=== PATIENT | female | born 1970 | race Caucasian/White ===

== ENCOUNTER 2018-01-14 03:52 | Emergency (ER) | payer BC ==
[2018-01-14] MEDS ORDERED: Hydromorphone 1 mg/ml Ampule IV ONE (04:07)
[2018-01-14] MEDS ORDERED: Phenergan 25 MG INJ IV ONE (04:07)
[2018-01-14] MEDS ORDERED: Phenergan 25 MG INJ ONE (04:12)
[2018-01-14] MEDS ORDERED: DILAUDID 2 MG INJECTION ONE (04:13)
[2018-01-14] MEDS ORDERED: Lactated Ringers 1,000 ML IV ONE (04:16)
--- NOTE | 2018-01-14 04:16 | ERPHSYRPT ---
- History of Present Illness Time Seen by Provider: 01/14/18 04:03 Source: patient Exam Limitations: no limitations Patient Subjective Stated Complaint: flank pain tonight. pain with urinating. has hx of kidnet stones last one 2010 Triage Nursing Assessment: aler is slight distress. pain in right flank. staets pain with urinating. has hx of stones. nausea without vomiting Physician History: FOR THE PAST 90 MINUTES PT HAS HAD SHARP STABBING RIGHT FLANK PAIN WITH NAUSEA. YESTERDAY PT STARTED WITH DYSURIA. LAST BM WAS YESTERDAY & WNL. PT DENIES FEVER , VOMITING, CHEST PAIN, SHORTNESS OF AIR. Allergies/Adverse Reactions: No Known Drug Allergies Allergy (Unverified 06/13/15 01:12) Home Medications: No Home Meds [No Home Meds] 07/19/12 [History] Hx Tetanus, Diphtheria Vaccination/Date Given: No Hx Influenza Vaccination/Date Given: No Hx Pneumococcal Vaccination/Date Given: No Immunizations Up to Date: (unknown) - Review of Systems Constitutional: No Fever Respiratory: No Dyspnea Cardiac: No Chest Pain Abdominal/Gastrointestinal: Nausea, Other (RIGHT FLANK PAIN), No Vomiting Genitourinary Symptoms: Dysuria All Other Systems: Reviewed and Negative - Past Medical History Pertinent Past Medical History: Yes Other Medical History: Kidney Stone - Past Surgical History Past Surgical History: No Gastrointestinal: Appendectomy, Cholecystectomy Genitourinary: Other Female Surgical History: Other Other Surgical History: Ovarian cyst removal, wrist cyst removed, kidney stone removed. - Social History Smoking Status: Light tobacco smoker Exposure to second hand smoke: No Drug Use: none Patient Lives Alone: No Significant Family History: no pertinent family hx - Female History Hx Now: No - Nursing Vital Signs Nursing Vital Signs: Initial Vital Signs Temperature 97.4 F 01/14/18 03:57 Pulse Rate 52 L 01/14/18 03:57 Respiratory Rate 20 01/14/18 03:57 Blood Pressure 137/80 01/14/18 03:57 O2 Sat by Pulse Oximetry 100 01/14/18 03:57 Pain Scale Pain Intensity 8 - Physical Exam General Appearance: alert Eye Exam: PERRL/EOMI Ears, Nose, Throat Exam: TMs normal, pharynx normal, moist mucous membranes Neck Exam: normal inspection Respiratory Exam: lungs clear Cardiovascular Exam: normal heart sounds Gastrointestinal/Abdomen Exam: soft, normal bowel sounds, No tenderness Back Exam: normal range of motion Extremity Exam: No pedal edema Neurologic Exam: alert, cooperative Skin Exam: warm, dry SpO2 Interpretation: normal SpO2: 100 Oxygen Delivery: Room Air - Course Nursing assessment & vital signs reviewed: Yes Ordered Tests: Active Orders 24 hr Category Date Time Status Clean Catch Urine Specimen STAT Care 01/14/18 04:07 Active IV Insertion STAT Care 01/14/18 04:07 Active ABDOMEN AND PELVIS W/0 CONTRAS [CT] Stat Exams 01/14/18 04:07 Ordered AMYLASE Stat Lab 01/14/18 04:26 Completed CBC W DIFF Stat Lab 01/14/18 04:26 Completed CMP Stat Lab 01/14/18 04:26 Completed CULTURE,URINE Stat Lab 01/14/18 04:26 Received HCG QUALITATIVE,SERUM Stat Lab 01/14/18 04:26 Completed LIPASE Stat Lab 01/14/18 04:26 Completed UA W/ MICROSCOPIC Stat Lab 01/14/18 04:26 Completed Medication Summary Generic Name Dose Route Start Last Admin Trade Name Freq PRN Reason Stop Dose Admin Lactated Ringer's 1,000 mls @ 100 mls/hr 01/14/18 04:30 01/14/18 04:19 Lactated Ringers IV 02/13/18 04:29 100 mls/hr .Q10H AVIS Administration Ceftriaxone Sodium/Dextrose 1 g in 50 mls @ 100 mls/hr 01/14/18 06:09 Rocephin 1 Gm-D5w 50 Ml Bag IV 01/14/18 06:38 STAT STA Potassium Bicarbonate 50 meq 01/14/18 06:10 K-Lyte 25 Meq PO 01/14/18 06:11 STAT ONE Discontinued Medications Generic Name Dose Route Start Last Admin Trade Name Freq PRN Reason Stop Dose Admin Hydromorphone HCl 1 mg 01/14/18 04:07 01/14/18 04:19 Hydromorphone 1 Mg/Ml Ampule IV 01/14/18 04:08 1 mg STAT ONE Administration Hydromorphone HCl Confirm 01/14/18 04:13 Dilaudid 2 Mg Injection Administered 01/14/18 04:14 Dose 2 mg .ROUTE .STK-MED ONE Promethazine HCl 12.5 mg 01/14/18 04:07 01/14/18 04:18 Phenergan 25 Mg Inj IV 01/14/18 04:08 12.5 mg STAT ONE Administration Promethazine HCl Confirm 01/14/18 04:12 Phenergan 25 Mg Inj Administered 01/14/18 04:13 Dose 25 mg .ROUTE .K-MED ONE Lab/Rad Data: Laboratory Result Diagrams 01/14/18 04:26 01/14/18 04:26 Laboratory Results 01/14/18 01/14/18 01/14/18 Range/Units 04:26 04:26 04:26 WBC 3.6 L (4.0-10.5) K/mm3 RBC 3.75 L (4.1-5.4) M/mm3 Hgb 11.1 L (12.0-16.0) gm/dl Hct 33.6 L (35-47) % MCV 89.6 (78-100) fl MCH 29.6 (26-32) pg MCHC 33.0 (32-36) g/dl RDW 12.1 (11.5-14.0) % Plt Count 210 (150-450) K/mm3 MPV 10.3 H (6-9.5) fl Gran % 64.0 (36.0-66.0) % Lymphocytes % 25.0 (24.0-44.0) % Monocytes % 10.7 (0.0-12.0) % Eosinophils % 0.0 (0.00-5.0) % Basophils % 0.3 (0.0-0.4) % Basophils # 0.01 (0-0.4) Sodium 141 (137-145) mmol/L Potassium 3.1 L (3.5-5.1) mmol/L Chloride 105 (98-107) mEq/L Carbon Dioxide 24 (22-30) mmol/L Anion Gap 15.0 (5-15) MEQ/L BUN 18 H (7-17) mg/dl Creatinine 1.10 H (0.52-1.04) mg/dl Estimated GFR 57 ML/MIN Glucose 87 (74-106) mg/dL Calcium 9.4 (8.4-10.2) mg/dL Total Bilirubin 0.20 (0.2-1.3) mg/d? AST 29 (14-36) U/L ALT 20 (0-35) U/L Alkaline Phosphatase 81 (38-126) U/L Serum Total Protein 8.6 H (6.3-8.2) mg/dl Albumin 4.2 (3.5-5.0) g/dl Amylase 59 (30-110) U/L Lipase 75 (23-300) U/L Serum , Qual NEGATIVE (Negative) Ur Collection Type Urine Color (YELLOW) Urine Appearance (CLEAR) Urine pH (5-6) Ur Specific [place] (1.005-1.025) Urine Protein (Negative) Urine Ketones (NEGATIVE) Urine Blood (0-5) Mitch/ul Urine Nitrite (NEGATIVE) Urine Bilirubin (NEGATIVE) Urine Urobilinogen (0-1) mg/dL Ur Leukocyte Esterase (NEGATIVE) Urine Microscopic RBC (0-2) /HPF Urine Microscopic WBC (0-5) /HPF Ur Epithelial Cells (FEW) /HPF Urine Bacteria (NEGATIVE) /HPF Urine Culture Reflexed (NO) Urine Glucose (NEGATIVE) mg/dL Specimen Received 01/14/18 Range/Units 04:26 WBC (4.0-10.5) K/mm3 RBC (4.1-5.4) M/mm3 Hgb (12.0-16.0) gm/dl Hct (35-47) % MCV (78-100) fl MCH (26-32) pg MCHC (32-36) g/dl RDW (11.5-14.0) % Plt Count (150-450) K/mm3 MPV (6-9.5) fl Gran % (36.0-66.0) % Lymphocytes % (24.0-44.0) % Monocytes % (0.0-12.0) % Eosinophils % (0.00-5.0) % Basophils % (0.0-0.4) % Basophils # (0-0.4) Sodium (137-145) mmol/L Potassium (3.5-5.1) mmol/L Chloride (98-107) mEq/L Carbon Dioxide (22-30) mmol/L Anion Gap (5-15) MEQ/L BUN (7-17) mg/dl Creatinine (0.52-1.04) mg/dl Estimated GFR ML/MIN Glucose (74-106) mg/dL Calcium (8.4-10.2) mg/dL Total Bilirubin (0.2-1.3) mg/d? AST (14-36) U/L ALT (0-35) U/L Alkaline Phosphatase (38-126) U/L Serum Total Protein (6.3-8.2) mg/dl Albumin (3.5-5.0) g/dl Amylase (30-110) U/L Lipase (23-300) U/L Serum , Qual (Negative) Ur Collection Type VOID Urine Color YELLOW (YELLOW) Urine Appearance SLIGHTLY CLOUDY (CLEAR) Urine pH 7.0 (5-6) Ur Specific [place] 1.015 (1.005-1.025) Urine Protein 30 (Negative) Urine Ketones NEGATIVE (NEGATIVE) Urine Blood 250 (0-5) Mitch/ul Urine Nitrite POSITIVE (NEGATIVE) Urine Bilirubin NEGATIVE (NEGATIVE) Urine Urobilinogen NORMAL (0-1) mg/dL Ur Leukocyte Esterase 1+ (NEGATIVE) Urine Microscopic RBC 25-50 (0-2) /HPF Urine Microscopic WBC 15-25 (0-5) /HPF Ur Epithelial Cells MODERATE (FEW) /HPF Urine Bacteria MODERATE (NEGATIVE) /HPF Urine Culture Reflexed YES (NO) Urine Glucose NEGATIVE (NEGATIVE) mg/dL Specimen Received 01/14/18 0400 - Departure Time of Disposition: 06:16 Departure Disposition: Home Clinical Impression: UTI, HYPOKALEMIA Condition: Stable Critical Care Time: No Referrals: ASTRID STEWART [Primary Care Provider] - Instructions: Urinary Tract Infection, Adult (DC) Additional Instructions: FOLLOW UP WITH PRIVATE DOCTOR TOMORROW. Prescriptions: Phenazopyridine HCl 200 mg [Pyridium 200 mg] 200 mg PO TID #7 tablet Smz/Tmp Ds Tablet [Bactrim Ds Tablet] 1 udtab PO BID #20 tablet
[2018-01-14] MEDS ORDERED: Lactated Ringers 1,000 ML IV SCH (04:30)
[2018-01-14 04:37] LABS: BASOPHIL % 0.3 % (0.0-0.4); Basophil (Absolute #) 0.01 (0-0.4); Eosinophil (Absolute #) 0 (0-0.5); Granulocyte Absolute (ANC) 2.33 (1.4-6.9); Hematocrit 33.6 % (35-47); Hemoglobin 11.1 gm/dl (12.0-16.0); Lymphocyte (Absolute #) 0.91 (1.0-4.6); Mean Cell Volume 89.6 fl (78-100); Mean Corpuscular Hemoglobin 29.6 pg (26-32); Mean Platelet Volume 10.3 fl (6-9.5); Monocyte (Absolute #) 0.39 (0.0-1.3); Monocytes % 10.7 % (0.0-12.0); Platelet Count 210 K/mm3 (150-450); Red Blood Count 3.75 M/mm3 (4.1-5.4); Red Cell Distribution Width 12.1 % (11.5-14.0); White Blood Count 3.6 K/mm3 (4.0-10.5)
[2018-01-14 04:49] LABS: Appearance SLIGHTLY CLOUDY (CLEAR); Bacteria MODERATE /HPF (NEGATIVE); Bilirubin NEGATIVE (NEGATIVE); Blood 250 Ery/ul (0-5); Epithelial Cells MODERATE /HPF (FEW); Glucose NEGATIVE (NEGATIVE); Ketones NEGATIVE (NEGATIVE); Leukocyte Esterase 1+ (NEGATIVE); Nitrite POSITIVE (NEGATIVE); Protein,Urine Dip 30 (Negative); Specific Gravity 1.015 (1.005-1.025); Urobilinogen NORMAL mg/dL (0-1); WBC 15-25 /HPF (0-5)
[2018-01-14 05:23] LABS: ALBUMIN 4.2 g/dl (3.5-5.0); BILIRUBIN,TOTAL 0.2 mg/d? (0.2-1.3); Calcium 9.4 mg/dL (8.4-10.2); Creatinine 1 1.1 mg/dl (0.52-1.04); Potassium 3.1 mmol/L (3.5-5.1); Total Protein 8.6 mg/dl (6.3-8.2)
[2018-01-14] MEDS ORDERED: ROCEPHIN 1 Gm-D5w 50 ml Bag** 1 G/50 ML IVPB IV STA (06:09)
[2018-01-14] MEDS ORDERED: K-LYTE 25 MEQ PO ONE (06:10)
[2018-01-14] MEDS ORDERED: K-LYTE 25 MEQ ONE (06:26)
[2018-01-14] MEDS ORDERED: ROCEPHIN 1 Gm-D5w 50 ml Bag** 1 G/50 ML IVPB IV ONE (06:26)
[2018-01-14 06:58] VITALS: BP 100/68; PULSE 48; O2SAT 97
--- NOTE | 2018-01-14 09:16 | XRAY ---
Indication: Right flank pain. History kidney stones. Multiple contiguous axial images obtained through the abdomen and pelvis without contrast using renal stone protocol. Comparison: July 19, 2012. Lung bases essentially clear. Heart is not enlarged. Stable small hiatal hernia. Right kidney now demonstrates several micro-calculi, largest 3-4 mm lower pole. Left kidney demonstrates new punctate calculus. Right kidney also mildly hydronephrotic with mild right ureteral prominence along its course. No distal ureteral or bladder calculus. Findings likely related to recent passage of calculus. Noncontrasted stomach and bowel loops again appears nonobstructed. Moderate diffuse scattered colonic fecal debris throughout. Previous hysterectomy, cholecystectomy, and appendectomy. No free fluid/air. Remaining liver, pancreas, spleen, adrenal glands, kidneys, ureters, bladder, and aorta appear unremarkable for noncontrast exam. Osseous structures intact. Impression: 1. New bilateral renal micro-calculi. Right renal collecting system is slightly prominent without distal ureteral/bladder calculus presumed from recent passage of calculus. 2. Fecal stasis without obstruction. 3. Stable small hiatal hernia. Comment: Preliminary interpretation was made by C. Right-sided mild hydronephrosis/hydroureter not reported and not felt to be critical. CTDI 18.72
== END 2018-01-14 06:59 | disposition home or self-care (01) ==
LOC: ED 03:52
DX: N39.0 Urinary tract infection, site not specified (principal); E87.6 Hypokalemia; Z87.442 Personal history of urinary calculi
CPT/HCPCS: 36000; 36415; 74176; 80053; 81000; 82150; 83690; 84703; 85025; 87077; 87086; 87186; 96360; 96361; 96365; 96374; 96375; 99284; J0696; J1170; J2550; A9270-GY

== ENCOUNTER 2018-12-28 14:04 | Emergency (ER) | payer BC ==
[2018-12-28] MEDS ORDERED: Sodium Chloride 0.9% 1000 ML 1,000 ML IV SCH (14:15)
[2018-12-28] MEDS ORDERED: DUONEB 0.5-3 MG/3 ml Neb IH ONE ×2 (14:15→14:23)
[2018-12-28] MEDS ORDERED: ROCEPHIN 1 Gm-D5w 50 ml Bag** 1 G/50 ML IVPB IV STA (14:15)
[2018-12-28] MEDS ORDERED: solu-MEDROL 125 MG IV ONE (14:15)
[2018-12-28] MEDS ORDERED: Pepcid 20 MG VIAL IV ONE ×2 (14:15→14:51)
--- NOTE | 2018-12-28 14:23 | ERPHSYRPT ---
- History of Present Illness Time Seen by Provider: 12/28/18 14:08 Source: patient, family Exam Limitations: no limitations Physician History: patient with 4 day hx of cough productive of green phlegm; fever and chills; no travel; no exposures; no sore throat; general aches and pains ; no N&V; some CP today with cough and cant; take a deep breat - taight- given steroids yesterday - no help; no hx of copd or asthma Timing/Duration: today (worse), yesterday (CP and steroids), day(s) (4 onset), gradual onset, worse Activities at Onset: rest Severity of Dyspnea-Max: moderate Severity of Dyspnea-Current: moderate Possible Cause: no prior episodes Modifying Factors: Improves With: coughing Associated Symptoms: constant, cough, chest pain/discomfort, fever, wheezing, chills, productive cough International travel in last 2 weeks: No Allergies/Adverse Reactions: No Known Drug Allergies Allergy (Verified 12/28/18 14:18) Hx Tetanus, Diphtheria Vaccination/Date Given: No Hx Influenza Vaccination/Date Given: No Hx Pneumococcal Vaccination/Date Given: No - Review of Systems Constitutional: Fever, Chills Eyes: No Symptoms Ears, Nose, & Throat: No Symptoms Respiratory: Cough, Dyspnea, Wheezing Cardiac: Chest Pain, No Palpitations, No Syncope Abdominal/Gastrointestinal: No Abdominal Pain, No Nausea, No Vomiting, No Diarrhea Genitourinary Symptoms: No Symptoms Musculoskeletal: No Symptoms Skin: No Symptoms Neurological: No Symptoms Psychological: No Symptoms Endocrine: No Symptoms Hematologic/Lymphatic: No Symptoms Immunological/Allergic: No Symptoms - Past Medical History Pertinent Past Medical History: Yes Other Medical History: Sorjrns syndrome'. Kidney Stone - Past Surgical History Past Surgical History: No Gastrointestinal: Appendectomy, Cholecystectomy Genitourinary: Other Female Surgical History: Other Other Surgical History: Ovarian cyst removal, wrist cyst removed, kidney stone removed. - Social History Smoking Status: Light tobacco smoker Exposure to second hand smoke: No Drug Use: none Patient Lives Alone: No Significant Family History: no pertinent family hx - Female History Hx Now: No - Nursing Vital Signs Nursing Vital Signs: Initial Vital Signs Temperature 100.1 F 12/28/18 14:12 Pulse Rate 91 H 12/28/18 14:12 Respiratory Rate 22 12/28/18 14:12 Blood Pressure 124/90 12/28/18 14:12 O2 Sat by Pulse Oximetry 98 12/28/18 14:12 Pain Scale Pain Intensity 0 - Physical Exam General Appearance: moderate distress (coughing), alert, anxiety, thin Eye Exam: PERRL/EOMI, eyes nml inspection Ears, Nose, Throat Exam: hearing grossly normal, normal ENT inspection, normal pharynx, No pharyngeal erythema, No tonsillar exudate Neck Exam: normal inspection, non-tender, supple, full range of motion, No meningismus, No carotid bruit, No JVD, No lymphadenopathy (R), No lymphadenopathy (L) Respiratory Exam: chest tenderness, respiratory distress (mild tahypnea), airway intact, diminished breath sounds (left base), crackles/rales (scattered) , rhonchi (few scattered), wheezing (post right upper exp), No normal breath sounds, No lungs clear, No pleural rub Cardiovascular/Chest Exam: normal heart sounds, regular rate/rhythm, normal peripheral pulses, No murmur, No edema, No JVD Abdominal/Gastrointestinal Exam: soft, normal bowel sounds, No tenderness, No guarding, No rebound, No organomegaly Rectal Exam: deferred Extremity Exam: non-tender, normal range of motion, normal inspection, No no calf tenderness, No no pedal edema, No jorge luis's sign Peripheral Pulses Exam: carotid (R): 4+, carotid (L): 4+, femoral (R): 4+, femoral (L): 4+, dorsalis-pedis (R): 3+, dorsalis-pedis (L): 3+ Neurologic Exam: alert, oriented x 3, cooperative, family welfare social work professor II-XII nml as tested, nml cerebellar function, nml station & gait, No normal mood/affect (anxious) Skin Exam: normal color, warm, dry, No rash, No petechiae, No cyanosis SpO2 Interpretation: normal SpO2: 98 O2 Delivery: Room Air - Course Nursing assessment & vital signs reviewed: Yes EKG Interpreted by Me: RATE (85), Sinus Rhythm, NORMAL AXIS, NORMAL INTERVALS, NORMAL QRS, NORMAL ST-T Rhythm Strip: Rate (86), Normal Sinus Rhythm - Radiology Exams Chest X-ray Interpretation: Interpreted by me, No Pneumonia, No Pneumothorax, Nml Heart Size, No Infiltrates, Other (changes of COPD with linear bi basilar atelectasis/ starnding) Ordered Tests: Active Orders 24 hr Category Date Time Status Gin Feeder STAT Care 12/28/18 14:16 Active EKG-ER Only STAT Care 12/28/18 14:15 Active IV Insertion STAT Care 12/28/18 14:15 Active Pulse Oximetry (ED) STAT Care 12/28/18 14:15 Active CHEST 1 VIEW (PORTABLE) Stat Exams 12/28/18 14:16 Taken BLOOD CULTURE Stat Lab 12/28/18 14:50 Received CBC W DIFF Stat Lab 12/28/18 14:45 Completed CMP Stat Lab 12/28/18 14:45 Completed Lactic Acid Stat Lab 12/28/18 14:48 Completed TROPONIN Q3H Lab 12/28/18 14:45 Completed TROPONIN Q3H Lab 12/28/18 17:15 Ordered TROPONIN Q3H Lab 12/28/18 20:15 Ordered TROPONIN Q3H Lab 12/28/18 23:15 Ordered TROPONIN Q3H Lab 12/29/18 02:15 Ordered Peak Expiratory Flow Rate ONCE RT 12/28/18 14:15 Active Respiratory Nebulizer STAT RT 12/28/18 14:17 Completed Respiratory Therapy Assessment DAILY RT 12/28/18 14:40 Active Medication Summary Generic Name Dose Route Start Last Admin Trade Name Freq PRN Reason Stop Dose Admin Sodium Chloride 1,000 mls @ 100 mls/hr 12/28/18 14:15 12/28/18 14:52 Sodium Chloride 0.9% 1000 Ml IV 01/27/19 14:14 100 mls/hr .Q10H AVIS Administration Discontinued Medications Generic Name Dose Route Start Last Admin Trade Name Freq PRN Reason Stop Dose Admin Acetaminophen 1,000 mg 12/28/18 14:29 12/28/18 14:52 Tylenol Extra Strength 500 Mg PO 12/28/18 14:30 1,000 mg STAT STA Administration Acetaminophen Confirm 12/28/18 14:45 Tylenol Extra Strength 500 Mg Administered 12/28/18 14:46 Dose 1,000 mg .ROUTE .STK-MED ONE Albuterol/Ipratropium 3 ml 12/28/18 14:15 12/28/18 14:32 Duoneb 0.5-3 Mg/3 Ml Neb IH 12/28/18 14:16 3 ml STAT ONE Administration Albuterol/Ipratropium Confirm 12/28/18 14:23 Duoneb 0.5-3 Mg/3 Ml Neb Administered 12/28/18 14:24 Dose 3 ml IH .STK-MED ONE Famotidine 20 mg 12/28/18 14:15 12/28/18 14:51 Pepcid 20 Mg Vial IV 12/28/18 14:16 20 mg STAT ONE Administration Famotidine Confirm 12/28/18 14:51 Pepcid 20 Mg Vial Administered 12/28/18 14:52 Dose 20 mg IV .STK-MED ONE Ceftriaxone Sodium/Dextrose 1 g in 50 mls @ 100 mls/hr 12/28/18 14:15 14:52 Rocephin 1 Gm-D5w 50 Ml Bag IV 12/28/18 14:44 100 ml/hr STAT STA 100 mls/hr Administration Ceftriaxone Sodium/Dextrose Confirm 12/28/18 14:51 Rocephin 1 Gm-D5w 50 Ml Bag Administered 12/28/18 14:52 Dose 1 g in 50 mls @ ud IV .STK-MED ONE Methylprednisolone Sodium Succinate 125 mg 12/28/18 14:15 12/28/18 14:51 Solu-Medrol 125 Mg IV 12/28/18 14:16 125 mg STAT ONE Administration Methylprednisolone Sodium Succinate Confirm 12/28/18 14:45 Solu-Medrol 125 Mg Administered 12/28/18 14:46 Dose 125 mg .ROUTE .STK-MED ONE Potassium Bicarbonate 50 meq 12/28/18 15:26 12/28/18 15:28 K-Lyte 25 Meq PO 12/28/18 15:27 50 meq STAT ONE Administration Potassium Bicarbonate Confirm 12/28/18 15:25 K-Lyte 25 Meq Administered 12/28/18 15:26 Dose 50 meq .ROUTE .STK-MED ONE Potassium Chloride 40 meq 12/29/18 10:00 Potassium Chl 40 Meq/30 Ml Oral Solution PO 01/28/19 09:59 DAILY AVIS Lab/Rad Data: Laboratory Result Diagrams 12/28/18 14:45 12/28/18 14:45 Laboratory Results 12/28/18 12/28/18 12/28/18 Range/Units 14:48 14:45 14:45 WBC (4.0-10.5) K/mm3 RBC (4.1-5.4) M/mm3 Hgb (12.0-16.0) gm/dl Hct (35-47) % MCV (78-100) fl MCH (26-32) pg MCHC (32-36) g/dl RDW (11.5-14.0) % Plt Count (150-450) K/mm3 MPV (6-9.5) fl Gran % (36.0-66.0) % Eos # (Auto) (0-0.5) Absolute Lymphs (auto) (1.0-4.6) Absolute Monos (auto) (0.0-1.3) Lymphocytes % (24.0-44.0) % Monocytes % (0.0-12.0) % Eosinophils % (0.00-5.0) % Basophils % (0.0-0.4) % Absolute Granulocytes (1.4-6.9) Basophils # (0-0.4) Sodium 139 (137-145) mmol/L Potassium 2.8 L* (3.5-5.1) mmol/L Chloride 109 H (98-107) mmol/L Carbon Dioxide 18 L (22-30) mmol/L Anion Gap 15.1 H (5-15) MEQ/L BUN 13 (7-17) mg/dL Creatinine 1.19 H (0.52-1.04) mg/dL Estimated GFR 51.9 ML/MIN Glucose 101 (74-106) mg/dL Lactic Acid 1.2 (0.4-2.0) Calcium 10.4 H (8.4-10.2) mg/dL Total Bilirubin 0.60 (0.2-1.3) mg/dL AST 24 (14-36) U/L ALT 17 (0-35) U/L Alkaline Phosphatase 103 (38-126) U/L Troponin I (0.000-0.034) ng/mL Serum Total Protein 9.5 H (6.3-8.2) g/dL Albumin 4.8 (3.5-5.0) g/dL Influenza Type A Ag NEGATIVE (NEGATIVE) Influenza Type B Ag NEGATIVE (NEGATIVE) RSV (PCR) POSITIVE (Negative) Slides for Path Review 12/28/18 12/28/18 Range/Units 14:45 14:45 WBC 8.3 (4.0-10.5) K/mm3 RBC 3.70 L (4.1-5.4) M/mm3 Hgb 11.4 L (12.0-16.0) gm/dl Hct 34.0 L (35-47) % MCV 91.9 (78-100) fl MCH 30.8 (26-32) pg MCHC 33.5 (32-36) g/dl RDW 12.5 (11.5-14.0) % Plt Count 228 (150-450) K/mm3 MPV 10.3 H (6-9.5) fl Gran % 86.8 H (36.0-66.0) % Eos # (Auto) 0 (0-0.5) Absolute Lymphs (auto) 0.51 L (1.0-4.6) Absolute Monos (auto) 0.58 (0.0-1.3) Lymphocytes % 6.2 L (24.0-44.0) % Monocytes % 7.0 (0.0-12.0) % Eosinophils % 0.0 (0.00-5.0) % Basophils % 0.0 (0.0-0.4) % Absolute Granulocytes 7.16 H (1.4-6.9) Basophils # 0 (0-0.4) Sodium (137-145) mmol/L Potassium (3.5-5.1) mmol/L Chloride (98-107) mmol/L Carbon Dioxide (22-30) mmol/L Anion Gap (5-15) MEQ/L BUN (7-17) mg/dL Creatinine (0.52-1.04) mg/dL Estimated GFR ML/MIN Glucose (74-106) mg/dL Lactic Acid (0.4-2.0) Calcium (8.4-10.2) mg/dL Total Bilirubin (0.2-1.3) mg/dL AST (14-36) U/L ALT (0-35) U/L Alkaline Phosphatase (38-126) U/L Troponin I < 0.012 (0.000-0.034) ng/mL Serum Total Protein (6.3-8.2) g/dL Albumin (3.5-5.0) g/dL Influenza Type A Ag (NEGATIVE) Influenza Type B Ag (NEGATIVE) RSV (PCR) (Negative) Slides for Path Review YES reviewed - Progress Progress: re-examined (after meds and resp treatment) Air Movement: fair Progress Note: 12/28/18 14:27 will give IV fluids aTBs and resp treatment after lab and cultures and CXR; will monitor and recheck- sats ok; low grade fever; will give tylenol 12/28/18 14:56 recheck post Resp treatment - patient feeling better; vs improved- resp distress improved; wheezing resolved and moving air better; CXR - COPD- noacute change; lactic acid wnl; EKG and labs pending; will monitor and recheck 12/28/18 15:17 K+ low at 2.8- will supplement 12/28/18 15:44 rechecked- family at bedside; RSV positive- Troponin ok- instructions given Blood Culture(s) Obtained: Yes Antibiotics given: Yes Counseled pt/family regarding: lab results, diagnosis, need for follow-up, rad results, smoking cessation - Departure Time of Disposition: 15:45 Departure Disposition: Home Clinical Impression: acute RSV lung infection, hypokalemia 2.8, Asthmatic bronchitis with acute exacerbation Condition: Stable Critical Care Time: No Instructions: Cough, Adult (DC), Respiratory Syncytial Virus, Adult (DC) Additional Instructions: fluid hydration- vaporizer; continue Flonase Follow-up with family doctor as directed. Call for appointment. Return if any problems. If you smoke please stop. Call or follow up with your family doctor for assistance if you need it to stop. Please wear your seatbelt when driving. Have a nice day. Thank you for allowing us to participate in your care today. :o) Dr Jerel Randall Prescriptions: Albuterol 8 gm Mdi Hfa [Ventolin Hfa MDI] 18 gm IH Q4-6HPRN PRN #1 [email or web address] PRN Reason: Cough Methylprednisolone Packet [Medrol Dosepack] 4 mg PO UD #30 packet Potassium Chl 40 Meq Oral Yoly* [Potassium Chl 40 Meq/30 ml Oral Solution] 40 meq PO DAILY #120 udcup
[2018-12-28] MEDS ORDERED: TYLENOL EXTRA STRENGTH 500 MG PO STA (14:29)
[2018-12-28] MEDS ORDERED: TYLENOL EXTRA STRENGTH 500 MG ONE (14:45)
[2018-12-28] MEDS ORDERED: solu-MEDROL 125 MG ONE (14:45)
[2018-12-28] MEDS ORDERED: Sodium Chloride 0.9% 1000 ML 1,000 ML ONE (14:45)
[2018-12-28] MEDS ORDERED: ROCEPHIN 1 Gm-D5w 50 ml Bag** 1 G/50 ML IVPB IV ONE (14:51)
[2018-12-28 15:04] LABS: Basophil (Absolute #) 0 (0-0.4); Eosinophil (Absolute #) 0 (0-0.5); Granulocyte Absolute (ANC) 7.16 (1.4-6.9); Granulocytes % 86.8 % (36.0-66.0); Hemoglobin 11.4 gm/dl (12.0-16.0); Lymphocyte (Absolute #) 0.51 (1.0-4.6); Lymphocytes % 6.2 % (24.0-44.0); Mean Cell Volume 91.9 fl (78-100); Mean Corpuscular Hemoglobin 30.8 pg (26-32); Mean Corpuscular Hgb Concent. 33.5 g/dl (32-36); Mean Platelet Volume 10.3 fl (6-9.5); Monocyte (Absolute #) 0.58 (0.0-1.3); Platelet Count 228 K/mm3 (150-450); Red Cell Distribution Width 12.5 % (11.5-14.0); White Blood Count 8.3 K/mm3 (4.0-10.5)
[2018-12-28 15:06] VITALS: BP 124/80; PULSE 93
[2018-12-28 15:14] LABS: ALBUMIN 4.8 g/dL (3.5-5.0); ANION GAP 15.1 MEQ/L (5-15); BILIRUBIN,TOTAL 0.6 mg/dL (0.2-1.3); Calcium 10.4 mg/dL (8.4-10.2); Creatinine 1 1.19 mg/dL (0.52-1.04); Total Protein 9.5 g/dL (6.3-8.2)
[2018-12-28 15:15] LABS: Potassium 2.8 mmol/L (3.5-5.1)
[2018-12-28 15:17] VITALS: O2SAT 98
[2018-12-28 15:18] LABS: Slide Review 1 YES
[2018-12-28] MEDS ORDERED: K-LYTE 25 MEQ ONE (15:25)
[2018-12-28] MEDS ORDERED: K-LYTE 25 MEQ PO ONE (15:26)
[2018-12-28 15:30] LABS: INFLUENZA A NEGATIVE (NEGATIVE); INFLUENZA B NEGATIVE (NEGATIVE)
[2018-12-28 15:31] LABS: RESPIRATORY SYNCTIAL VIRUS POSITIVE (Negative)
--- NOTE | 2018-12-28 20:20 | XRAY ---
Indication: Fever, short of breath, and productive cough. Comparison: January 25, 2016. Portable chest remains clear. Heart and mediastinal structures within normal limits. Bony thorax intact. Impression: Stable nonacute chest.
[2018-12-29] MEDS ORDERED: POTASSIUM CHL 40 MEQ/30 ML ORAL SOLUTION PO SCH (10:00)
== END 2018-12-28 16:13 | disposition home or self-care (01) ==
LOC: ED 14:04
DX: B97.4 Respiratory syncytial virus as the cause of diseases classified elsewhere (principal); E87.6 Hypokalemia; J45.909 Unspecified asthma, uncomplicated
CPT/HCPCS: 36000; 36415; 71045; 80053; 83605; 84484; 85025; 87040; 87631; 93005; 93041; 94150; 94640; 96360; 96365; 96374; 96375; 99285; J0696; J2930; A9270-GY

== ENCOUNTER 2019-09-17 14:05 | Emergency (ER) | payer BC ==
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
[2019-09-17 15:25] VITALS: O2SAT 99
[2019-09-17] MEDS ORDERED: PERCOCET TABLET 5/325MG PO STA (15:26)
[2019-09-17] MEDS ORDERED: Cyclobenzaprine 10 MG PO ONE (15:26)
[2019-09-17] MEDS ORDERED: PERCOCET TABLET 5/325MG ONE (15:29)
[2019-09-17] MEDS ORDERED: Cyclobenzaprine 10 MG ONE (15:29)
[2019-09-17 16:17] VITALS: BP 121/71; PULSE 69
== END 2019-09-17 16:18 | disposition home or self-care (01) ==
LOC: ED 14:05
DX: S30.0XXA Contusion of lower back and pelvis, initial encounter (principal); V43.52XA Car driver injured in collision with other type car in traffic accident, initial encounter; Y92.410 Unspecified street and highway as the place of occurrence of the external cause
CPT/HCPCS: 72100; 72170; 99284; A9270-GY

== ENCOUNTER 2021-08-01 10:57 | Emergency (ER) | payer BC ==
[2021-08-01 11:14] VITALS: O2SAT 100
[2021-08-01] MEDS ORDERED: TORAdol 30 mg Injection IV ONE (11:29)
[2021-08-01] MEDS ORDERED: Zofran 4 MG/2 ML VIAL IV ONE (11:29)
[2021-08-01] MEDS ORDERED: MORPHINE SULFATE 4 MG INJ IV ONE (11:29)
[2021-08-01] MEDS ORDERED: MORPHINE SULFATE 4 MG INJ ONE (11:35)
[2021-08-01] MEDS ORDERED: Zofran 4 MG/2 ML VIAL ONE (11:35)
[2021-08-01] MEDS ORDERED: TORAdol 30 mg Injection ONE (11:35)
--- NOTE | 2021-08-01 11:38 | ERPHSYRPT ---
- History of Present Illness Time Seen by Provider: 08/01/21 10:58 Historian: patient Exam Limitations: no limitations Patient Subjective Stated Complaint: Pt states "I woke up from the pain on my left side and it started in my back and goes to the front lower belly." Triage Nursing Assessment: Pt presented alert and oriented X 3, skin pwd pt siddharth perez and holding her left side. Pt in no apparent respiratory distress. Physician History: 51 years old female presented in the ER with chief complaint of left flank pain sudden onset waking her up from sleep, moderate to severe sharp nature, radiating/wrapping around her abdomen to groin, aggravated with palpation movements and no significant relieving factor except for mild relief on being still, associated with mild increased frequency without hematuria. Also report associated nausea and one episode of nonprojectile, nonbilious vomiting without hematemesis. Does have history of kidney stones in the past. Timing/Duration: today, constant, sudden, worse Activities at Onset: rest, sleep Quality: sharpness Abdominal Pain Onset Location: flank Pain Radiation: groin Severity of Pain-Max: severe Severity of Pain-Current: moderate Modifying Factors: Improves With: vomiting Associated Symptoms: nausea, vomiting Previous symptoms: no prior history Allergies/Adverse Reactions: No Known Drug Allergies Allergy (Verified 12/28/18 14:18) Home Medications: Potassium Citrate [Potassium Citrate ER] 15 meq PO DAILY 09/17/19 [History] mycophenolate mofetiL [Mycophenolate Mofetil] 1,500 mg PO BID 09/17/19 [History] Hx Tetanus, Diphtheria Vaccination/Date Given: No Hx Influenza Vaccination/Date Given: No Hx Pneumococcal Vaccination/Date Given: No Immunizations Up to Date: Yes Travel Risk - International Travel Have you traveled outside of the country in past 3 weeks: No - Coronavirus Screening Are you exhibiting any of the following symptoms?: No Close contact with a COVID-19 positive Pt in past 14-21 Days: No - Vaccine Status Have you recieved a Covid-19 vaccination: Yes 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[employer] - Vaccination Dates Date of 2cond Vaccination (if applicable): 02/2021 - Review of Systems Constitutional: No Symptoms Eyes: No Symptoms Ears, Nose, & Throat: No Symptoms Respiratory: No Symptoms Cardiac: No Symptoms Abdominal/Gastrointestinal: Abdominal Pain, Nausea, Vomiting Genitourinary Symptoms: Frequency Musculoskeletal: No Symptoms Skin: No Symptoms Neurological: No Symptoms Psychological: No Symptoms Endocrine: No Symptoms Hematologic/Lymphatic: No Symptoms Immunological/Allergic: No Symptoms - Past Medical History Pertinent Past Medical History: Yes Neurological History: No Pertinent History ENT History: No Pertinent History Cardiac History: No Pertinent History Respiratory History: No Pertinent History Endocrine Medical History: No Pertinent History Musculoskeletal History: No Pertinent History GI Medical History: No Pertinent History History: No Pertinent History Psycho-Social History: No Pertinent History Female Reproductive Disorders: No Pertinent History Other Medical History: Sorjrns syndrome'. Kidney Stone. hypokalemia. shokrahns disease - Past Surgical History Past Surgical History: No Neuro Surgical History: No Pertinent History Cardiac: No Pertinent History Respiratory: No Pertinent History Gastrointestinal: Appendectomy, Cholecystectomy Genitourinary: Other Musculoskeletal: No Pertinent History Female Surgical History: No Pertinent History, Other Other Surgical History: Ovarian cyst removal, wrist cyst removed, kidney stone removed. - Social History Smoking Status: Current every day smoker How long have you smoked: years Exposure to second hand smoke: Yes Drug Use: none Patient Lives Alone: No Significant Family History: no pertinent family hx - Female History Hx Last Menstrual Period: hysterecomy Hx Now: No - Nursing Vital Signs Nursing Vital Signs: Initial Vital Signs Temperature 97.8 F 08/01/21 11:09 Pulse Rate 48 L 08/01/21 11:09 Respiratory Rate 22 08/01/21 11:09 Blood Pressure 161/82 08/01/21 11:09 O2 Sat by Pulse Oximetry 100 08/01/21 11:09 Pain Scale Pain Intensity 8 - Physical Exam General Appearance: no apparent distress, alert Eye Exam: PERRL/EOMI, eyes nml inspection Ears, Nose, Throat Exam: normal ENT inspection, pharynx normal Neck Exam: normal inspection, supple, full range of motion Respiratory Exam: normal breath sounds, lungs clear Cardiovascular Exam: regular rate/rhythm, normal heart sounds Gastrointestinal/Abdomen Exam: soft, normal bowel sounds, tenderness (Left flank.) Back Exam: normal inspection, normal range of motion, CVA tenderness Neurologic Exam: alert, oriented x 3, cooperative, glass block bender II-XII nml as tested Skin Exam: normal color SpO2 Interpretation: normal SpO2: 100 O2 Delivery: Room Air Ordered Tests: Active Orders 24 hr Category Date Time Status EKG-ER Only STAT Care 08/01/21 11:29 Active IV Insertion STAT Care 08/01/21 11:29 Active NPO (ED) STAT Care 08/01/21 11:29 Active ABDOMEN AND PELVIS W/0 CONTRAS [CT] Stat Exams 08/01/21 11:29 Completed CBC W DIFF Stat Lab 08/01/21 11:30 Completed CMP Stat Lab 08/01/21 11:30 Completed CULTURE,URINE Stat Lab 08/01/21 11:34 Received LIPASE Stat Lab 08/01/21 11:30 Completed UA W/RFX UR CULTURE Stat Lab 08/01/21 11:34 Completed Medication Summary Discontinued Medications Generic Name Dose Route Start Last Admin Trade Name Freq PRN Reason Stop Dose Admin Ceftriaxone Sodium/Dextrose 2 g in 50 mls @ 100 mls/hr 08/01/21 13:14 07/07 05/25 14:03 Rocephin 2 Gm-D5w 50ml Bag IV 08/01/21 13:43 Infused STAT STA Infusion Ceftriaxone Sodium/Dextrose Confirm 08/01/21 13:24 Rocephin 1 Gm-D5w 50 Ml Bag Administered 08/01/21 13:25 Dose 1 g in 50 mls @ ud IV .STK-MED ONE Ceftriaxone Sodium/Dextrose Confirm 08/01/21 13:26 Rocephin 2 Gm-D5w 50ml Bag Administered 08/01/21 13:27 Dose 2 g in 50 mls @ ud IV .STK-MED ONE Ketorolac Tromethamine 30 mg 08/01/21 11:29 08/01/21 11:36 Toradol 30 Mg Injection IV 08/01/21 11:30 30 mg STAT ONE Administration Ketorolac Tromethamine Confirm 08/01/21 11:35 Toradol 30 Mg Injection Administered 08/01/21 11:36 Dose 30 mg .ROUTE .STK-MED ONE Morphine Sulfate 4 mg 08/01/21 11:29 08/01/21 11:37 Morphine Sulfate 4 Mg Inj IV 08/01/21 11:30 4 mg STAT ONE Administration Morphine Sulfate Confirm 08/01/21 11:35 Morphine Sulfate 4 Mg Inj Administered 08/01/21 11:36 Dose 4 mg .ROUTE .STK-MED ONE Ondansetron HCl 4 mg 08/01/21 11:29 08/01/21 11:36 Zofran 4 Mg/2 Ml Vial IV 08/01/21 11:30 4 mg STAT ONE Administration Ondansetron HCl Confirm 08/01/21 11:35 Zofran 4 Mg/2 Ml Vial Administered 08/01/21 11:36 Dose 4 mg .ROUTE .STK-MED ONE Lab/Rad Data: Laboratory Result Diagrams 08/01/21 11:30 08/01/21 11:30 Laboratory Results 08/01/21 08/01/21 08/01/21 Range/Units 11:34 11:30 11:30 WBC 7.7 (4.0-10.5) K/mm3 RBC 4.17 (4.1-5.4) M/mm3 Hgb 12.5 (12.0-16.0) gm/dl Hct 37.6 (35-47) % MCV 90.2 (78-100) fl MCH 30.0 (26-32) pg MCHC 33.2 (32-36) g/dl RDW 13.6 (11.5-14.0) % Plt Count 222 (150-450) K/mm3 MPV 10.8 (7.5-11.0) fl Gran % 86.7 H (36.0-66.0) % Eos # (Auto) 0 (0-0.5) Absolute Lymphs (auto) 0.62 L (1.0-4.6) Absolute Monos (auto) 0.40 (0.0-1.3) Lymphocytes % 8.1 L (24.0-44.0) % Monocytes % 5.2 (0.0-12.0) % Eosinophils % 0.0 (0.00-5.0) % Basophils % 0.0 (0.0-0.4) % Absolute Granulocytes 6.65 (1.4-6.9) Basophils # 0 (0-0.4) Sodium 144 (137-145) mmol/L Potassium 3.1 L (3.5-5.1) mmol/L Chloride 116 H (98-107) mmol/L Carbon Dioxide 17 L (22-30) mmol/L Anion Gap 14.2 (5-15) MEQ/L BUN 17 (7-17) mg/dL Creatinine 1.73 H (0.52-1.04) mg/dL Estimated GFR 33.3 ML/MIN Glucose 108 H (74-106) mg/dL Calcium 9.7 (8.4-10.2) mg/dL Total Bilirubin 0.50 (0.2-1.3) mg/dL AST 23 (14-36) U/L ALT 13 (0-35) U/L Alkaline Phosphatase 82 (38-126) U/L Serum Total Protein 8.9 H (6.3-8.2) g/dL Albumin 4.6 (3.5-5.0) g/dL Lipase 83 (23-300) U/L Urine Color YELLOW (YELLOW) Urine Appearance SLIGHTLY CLOUDY (CLEAR) Urine pH 7.0 (5-6) Ur Specific [place] 1.012 (1.005-1.025) Urine Protein 100 (Negative) Urine Ketones NEGATIVE (NEGATIVE) Urine Blood SMALL (0-5) Mitch/ul Urine Nitrite NEGATIVE (NEGATIVE) Urine Bilirubin NEGATIVE (NEGATIVE) Urine Urobilinogen NEGATIVE (0-1) mg/dL Ur Leukocyte Esterase TRACE (NEGATIVE) Urine WBC (Auto) 16-25 (0-5) /HPF Urine RBC (Auto) 3-5 (0-2) /HPF U Epithel Cells (Auto) RARE (FEW) /HPF Urine Bacteria (Auto) RARE (NEGATIVE) /HPF Urine Mucus (Auto) SLIGHT (NEGATIVE) /HPF Urine Culture Reflexed YES (NO) Urine Glucose NEGATIVE (NEGATIVE) mg/dL - Progress Progress: improved, re-examined Progress Note: 08/01/21 14:43 51 years old is evaluated for sudden onset left flank pain. She is given fluid bolus and pain medication, on reevaluation feeling better. Patient has normal white count, chemistry profile showed mild worsening of renal function and does have UTI. Given a dose of Rocephin in here. I have obtained CT abdomen pelvis with out contrast which showed 4 mm left UVJ stone with partial obstructive uropathy. Discussed with Dr. Miller urology, reviewed history and work-up, since no beds are available at [facility], recommended sending patient to his clinic right now and he will evaluate. I will send prescription of pain medication and Levaquin to take outpatient. Plan discussed with patient who understand and agrees with going at Dr. Miller office now. Discussed with Dr.: Other ( urologist) Will see patient in: office Counseled pt/family regarding: lab results, diagnosis, need for follow-up, rad results - Departure Departure Disposition: Home Clinical Impression: Obstructive uropathy Condition: Stable Critical Care Time: No Referrals: ASTRID STEWART [Primary Care Provider] - ARY MILLER [COURTESY STAFF] - (Go straight to his office. Inform the office that you are coming to see Dr. Miller) Instructions: Kidney Stones (DC) Prescriptions: Hydrocodone/APAP 5/325 [[employer] 5/325 mg] 1 each PO Q6H PRN PRN #12 tablet MDD 5 PRN Reason: Pain Levofloxacin [Levaquin 500 MG Tablet] 500 mg PO DAILY #7 tablet
[2021-08-01 11:48] LABS: Absolute Neutrophil Ct (ANC) 6.65 (1.4-6.9); Basophil (Absolute #) 0 (0-0.4); Eosinophil (Absolute #) 0 (0-0.5); Hematocrit 37.6 % (35-47); Hemoglobin 12.5 gm/dl (12.0-16.0); Lymphocyte (Absolute #) 0.62 (1.0-4.6); Lymphocytes % 8.1 % (24.0-44.0); Mean Cell Volume 90.2 fl (78-100); Mean Corpuscular Hgb Concent. 33.2 g/dl (32-36); Mean Platelet Volume 10.8 fl (7.5-11.0); Monocytes % 5.2 % (0.0-12.0); Neutrophil % 86.7 % (36.0-66.0); Platelet Count 222 K/mm3 (150-450); Red Blood Count 4.17 M/mm3 (4.1-5.4); Red Cell Distribution Width 13.6 % (11.5-14.0); White Blood Count 7.7 K/mm3 (4.0-10.5)
[2021-08-01 12:00] LABS: ALBUMIN 4.6 g/dL (3.5-5.0); ANION GAP 14.2 MEQ/L (5-15); BILIRUBIN,TOTAL 0.5 mg/dL (0.2-1.3); Calcium 9.7 mg/dL (8.4-10.2); Creatinine 1 1.73 mg/dL (0.52-1.04); EST GLOMERULAR FILTRATION RATE 33.3 ML/MIN; Potassium 3.1 mmol/L (3.5-5.1); Total Protein 8.9 g/dL (6.3-8.2)
--- NOTE | 2021-08-01 12:11 | XRAY ---
Indication: Left flank pain. History kidney stones. Multiple contiguous images obtained through the abdomen and pelvis without contrast using renal stone protocol. Comparison: January 14, 2018. Lung bases remain clear. Heart not enlarged. Stable small hiatal hernia. New 4 mm left UVJ calculus. Proximal left ureter is mildly prominent along with mild left hydronephrosis consistent with partial obstructive uropathy. Again additional bilateral renal micro-calculi, increased in number. Noncontrasted stomach and bowel loops are nonobstructed. Minimal sigmoid diverticulosis. Again hysterectomy, cholecystectomy, and appendectomy. No free fluid/air. Remaining liver, pancreas, spleen, adrenal glands, bladder, and aorta are unremarkable for noncontrast exam. Osseous structures intact. Impression: 1. New 4 mm left UVJ calculus producing partial obstructive uropathy. Additional bilateral renal micro-calculi increased in number. 2. Incidental small hiatal hernia and sigmoid diverticulosis.
[2021-08-01 12:51] LABS: Appearance SLIGHTLY CLOUDY (CLEAR); Bacteria RARE /HPF (NEGATIVE); Bilirubin NEGATIVE (NEGATIVE); Blood SMALL Ery/ul (0-5); Epithelial Cells RARE /HPF (FEW); Glucose NEGATIVE (NEGATIVE); Ketones NEGATIVE (NEGATIVE); Leukocyte Esterase TRACE (NEGATIVE); Mucus SLIGHT /HPF (NEGATIVE); Nitrite NEGATIVE (NEGATIVE); Protein,Urine Dip 100 (Negative); Specific Gravity 1.012 (1.005-1.025); Urobilinogen NEGATIVE mg/dL (0-1)
[2021-08-01] MEDS ORDERED: ROCEPHIN 2 Gm-D5w 50ML BAG** 2 G/50 ML IVPB IV STA (13:14)
[2021-08-01] MEDS ORDERED: ROCEPHIN 1 Gm-D5w 50 ml Bag** 0 G/0 ML IVPB IV ONE (13:24)
[2021-08-01] MEDS ORDERED: ROCEPHIN 2 Gm-D5w 50ML BAG** 2 G/50 ML IVPB IV ONE (13:26)
[2021-08-01 14:21] VITALS: BP 113/60; PULSE 48
== END 2021-08-01 15:00 | disposition home or self-care (01) ==
LOC: ED 10:57
DX: N13.9 Obstructive and reflux uropathy, unspecified (principal); R10.9 Unspecified abdominal pain; R11.2 Nausea with vomiting, unspecified
CPT/HCPCS: 36000; 36415; 74176; 80053; 81001; 83690; 85025; 87077; 87086; 87186; 93005; 96365; 96374; 96375; 99284; J0696; J1885; J2270; J2405

== ENCOUNTER 2023-02-26 14:23 | Emergency (ER) | payer BC ==
--- NOTE | 2023-02-26 14:33 | ERPHSYRPT ---
- History of Present Illness Time Seen by Provider: 02/26/23 14:33 Source: patient Exam Limitations: no limitations Physician History: This is a right-handed white female who has a history of Sojourn's syndrome/disease and presents with left hand pain and swelling secondary to blunt trauma when she stuck out her left hand to stop [facility] It occurred just prior to her arrival to the emergency department. Occurred: just prior to arrival Method of Injury: direct blow (From heavy cans falling off a shelf) Quality: aching Severity of Pain-Max: mild Severity of Pain-Current: mild Extremities Pain Location: hand: left (Palmar aspect swelling) Allergies/Adverse Reactions: No Known Drug Allergies Allergy (Verified 02/26/23 14:34) Home Medications: Potassium Citrate [Potassium Citrate ER] 15 meq PO DAILY 09/17/19 [History] Hx Tetanus, Diphtheria Vaccination/Date Given: No Hx Influenza Vaccination/Date Given: No Hx Pneumococcal Vaccination/Date Given: No Travel Risk - International Travel Have you traveled outside of the country in past 3 weeks: No - Coronavirus Screening Are you exhibiting any of the following symptoms?: No Close contact with a COVID-19 positive Pt in past 14-21 Days: No - Vaccine Status Have you recieved a Covid-19 vaccination: Yes 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[employer] - Vaccination Dates Date of 2cond Vaccination (if applicable): 02/2021 - Review of Systems Constitutional: No Symptoms Eyes: No Symptoms Ears, Nose, & Throat: No Symptoms Respiratory: No Symptoms Cardiac: No Symptoms Abdominal/Gastrointestinal: No Symptoms Genitourinary Symptoms: No Symptoms Musculoskeletal: Injury (Palmar aspect left hand) Skin: No Symptoms Neurological: No Symptoms Psychological: No Symptoms Endocrine: No Symptoms Hematologic/Lymphatic: No Symptoms Immunological/Allergic: No Symptoms All Other Systems: Reviewed and Negative - Past Medical History Pertinent Past Medical History: Yes Neurological History: No Pertinent History ENT History: No Pertinent History Cardiac History: No Pertinent History Respiratory History: No Pertinent History Endocrine Medical History: No Pertinent History Musculoskeletal History: No Pertinent History GI Medical History: No Pertinent History History: No Pertinent History Psycho-Social History: No Pertinent History Female Reproductive Disorders: No Pertinent History Other Medical History: Sorjrns syndrome'. Kidney Stone. hypokalemia. shokrahns disease - Past Surgical History Past Surgical History: No Neuro Surgical History: No Pertinent History Cardiac: No Pertinent History Respiratory: No Pertinent History Gastrointestinal: Appendectomy, Cholecystectomy Genitourinary: Other Musculoskeletal: No Pertinent History Female Surgical History: No Pertinent History, Other Other Surgical History: Ovarian cyst removal, wrist cyst removed, kidney stone removed. - Social History Smoking Status: Current every day smoker How long have you smoked: years Exposure to second hand smoke: Yes Drug Use: none Patient Lives Alone: No Significant Family History: no pertinent family hx - Nursing Vital Signs Nursing Vital Signs: Initial Vital Signs Temperature 98.5 F 02/26/23 14:35 Pulse Rate 53 L 02/26/23 14:35 Respiratory Rate 15 02/26/23 14:35 Blood Pressure 138/75 02/26/23 14:35 O2 Sat by Pulse Oximetry 100 02/26/23 14:35 Pain Scale Pain Intensity 6 - Physical Exam General Appearance: no apparent distress, alert, anxiety Eyes, Ears, Nose, Throat Exam: normal ENT inspection, moist mucous membranes Neck Exam: normal inspection, non-tender, supple, full range of motion Cardiovascular/Respiratory Exam: chest non-tender, no respiratory distress Abdominal Exam: non-tender Shoulder Exam: normal inspection, non-tender, no evidence of injury, normal ROM Elbow/Forearm Exam: normal inspection, non-tender, no evidence of injury, normal ROM Wrist Exam: normal inspection, non-tender, no evidence of injury, normal ROM Hand Exam: normal ROM, soft tissue tenderness (Localized tenderness and swelling palmar aspect left hand), swelling (Localized swelling and soft tissue tenderness palmar aspect left hand) Neuro/Tendon Exam: normal sensation, normal motor functions, normal tendon functions, responds to pain, no evidence tendon injury Mental Status Exam: alert, oriented x 3, cooperative Skin Exam: normal color, warm, dry SpO2 Interpretation: normal O2 Delivery: Room Air - Course Nursing assessment & vital signs reviewed: Yes Ordered Tests: Active Orders 24 hr Category Date Time Status HAND (MINIMUM 3 VIEWS) Stat Exams 02/26/23 14:32 Completed - Progress Progress: unchanged Progress Note: 02/26/23 14:59 X-ray of left hand was interpreted by the radiologist and I reviewed the impression. No evidence of acute fracture or dislocation This patient's level of medical complexity is low. This is based on review of the patient's past medical history, review of the patient's medication list, review of the patient drug allergy list, history of present illness and physical findings on examination. The only study necessary in this patient is x-ray of the left hand. The review of the impression of the x-ray is as above. Patient has a contusion to the palmar aspect of her left hand. Discharge plan is to have the patient soak the left hand in an ice bath 3 times a day for the next 48 hours and to use Tylenol and ibuprofen for pain control. Counseled pt/family regarding: diagnosis, need for follow-up, rad results Medical Desision Making - Discussion of managment Agreed on:: Treatment plan, need for follow-up - Diagnostic Testing Diagnostic test were ordered, analyzed, and reviewed by me: Yes Radiological Interpretation: Reviewed by me, Teleradiologist Report - Risk of complications Minimal Risk: Minimal risk of morbidity - Departure Departure Disposition: Home Clinical Impression: Contusion of left hand Condition: Stable Critical Care Time: No Referrals: ASTRID STEWART [Primary Care Provider] - Follow up/PCP as directed Additional Instructions: Ice Path left hand 3 times a day for next 48 hours. Use Tylenol and ibuprofen for pain control. Follow-up with your primary care provider for persistent symptoms.
--- NOTE | 2023-02-26 14:48 | XRAY ---
Indication: Pain following injury. Comparison: None 3 view left hand obtained. No bony, articular, or soft tissue abnormalities.
[2023-02-26 15:08] VITALS: BP 105/75; PULSE 52; O2SAT 99
== END 2023-02-26 15:10 | disposition home or self-care (01) ==
LOC: ED 14:23
DX: S60.222A Contusion of left hand, initial encounter (principal); W20.8XXA Other cause of strike by thrown, projected or falling object, initial encounter; Y92.512 Supermarket, store or market as the place of occurrence of the external cause; Z72.0 Tobacco use
CPT/HCPCS: 73130; 99282

== ENCOUNTER 2023-10-27 22:40 | Emergency (ER) | payer BC ==
[2023-10-27 22:43] VITALS: TEMP 99.2; O2SAT 100
[2023-10-27] MEDS ORDERED: Robitussin AC Syrup Unit Dose Cup PO ONE (23:27)
--- NOTE | 2023-10-27 23:34 | ERPHSYRPT ---
- History of Present Illness Time Seen by Provider: 10/27/23 23:29 Source: patient Exam Limitations: no limitations Patient Subjective Stated Complaint: cough and shortness of breath Triage Nursing Assessment: pt ambulated into ER without diff, spouse at bedside. Pt c/o cough and sob, which has worsened in the last 3 hours. Pt was covid + last week. Lungs clear, heart tones reg. No edema noted. Pt was getting up small amount of thick green sputum earlier today, but has a dry, non-prod cough at this time. Physician History: Pt c/o cough and sob, which has worsened in the last 3 hours. Pt was covid + last week. Pt was getting up small amount of thick green sputum earlier today, but has a dry, non-prod cough at this time Timing/Duration: today Cough Quality/Degree: moderate, productive cough, sputum Possible Cause: no prior episodes Associated Symptoms: cough, headache, muscle aches, nasal congestion, shortness of breath Allergies/Adverse Reactions: No Known Drug Allergies Allergy (Verified 10/27/23 22:54) Home Medications: Potassium Citrate [Potassium Citrate ER] 90 meq PO DAILY 09/17/19 [History] Azithromycin [Azithromycin 250 mg Pack] 1 tab PO DAILY 10/27/23 [History] Pantoprazole 20 mg [Protonix 20MG Tablet] 20 mg PO DAILY 10/27/23 [History] Hx Tetanus, Diphtheria Vaccination/Date Given: Yes Hx Influenza Vaccination/Date Given: Yes Hx Pneumococcal Vaccination/Date Given: No Immunizations Up to Date: Yes Travel Risk - International Travel Have you traveled outside of the country in past 3 weeks: No - Coronavirus Screening Symptoms: Fever, Cough: New Onset, Shortness of Breath, Vomiting/Diarrhea, Loss of Taste or Smell, Headaches/Body Aches/Fatigue Close contact with a COVID-19 positive Pt in past 14-21 Days: No - Vaccine Status Have you recieved a Covid-19 vaccination: Yes 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 - Review of Systems Constitutional: Fever, No Chills Eyes: No Symptoms Ears, Nose, & Throat: No Symptoms Respiratory: Cough, No Dyspnea Cardiac: No Chest Pain, No Edema, No Syncope Abdominal/Gastrointestinal: No Abdominal Pain, No Nausea, No Vomiting, No Diarrhea Genitourinary Symptoms: No Dysuria Musculoskeletal: No Back Pain, No Neck Pain Skin: No Rash Neurological: No Dizziness, No Focal Weakness, No Sensory Changes Psychological: No Symptoms Endocrine: No Symptoms All Other Systems: Reviewed and Negative - Past Medical History Pertinent Past Medical History: Yes Neurological History: No Pertinent History ENT History: No Pertinent History Cardiac History: No Pertinent History Respiratory History: No Pertinent History Endocrine Medical History: No Pertinent History Musculoskeletal History: No Pertinent History GI Medical History: Gallbladder Disease History: No Pertinent History Psycho-Social History: No Pertinent History Female Reproductive Disorders: No Pertinent History Other Medical History: Sorjrns syndrome'. Kidney Stone. hypokalemia. shokrahns disease - Past Surgical History Past Surgical History: Yes Neuro Surgical History: No Pertinent History Cardiac: No Pertinent History Respiratory: No Pertinent History Gastrointestinal: Appendectomy, Cholecystectomy Genitourinary: Other Musculoskeletal: No Pertinent History Female Surgical History: Hysterectomy, Other Other Surgical History: Ovarian cyst removal, wrist cyst removed, kidney stone removed, ERCP - Social History Smoking Status: Former smoker How long have you smoked: years Exposure to second hand smoke: No Drug Use: none Patient Lives Alone: No Significant Family History: no pertinent family hx - Nursing Vital Signs Nursing Vital Signs: Initial Vital Signs Temperature 99.2 F 10/27/23 22:41 Pulse Rate 61 10/27/23 22:41 Respiratory Rate 20 10/27/23 22:41 Blood Pressure 140/79 10/27/23 22:41 O2 Sat by Pulse Oximetry 100 10/27/23 22:41 Pain Scale Pain Intensity 0 - Physical Exam General Appearance: no apparent distress, alert Eye Exam: PERRL/EOMI, eyes nml inspection Ears, Nose, Throat Exam: normal ENT inspection, TMs normal, pharynx normal, moist mucous membranes Neck Exam: normal inspection, non-tender, supple, full range of motion Respiratory Exam: normal breath sounds, lungs clear, No respiratory distress Cardiovascular Exam: regular rate/rhythm, normal heart sounds Gastrointestinal/Abdomen Exam: soft, No tenderness Back Exam: normal inspection, No CVA tenderness, No vertebral tenderness Extremity Exam: normal inspection, normal range of motion Neurologic Exam: alert, oriented x 3, cooperative, normal mood/affect, sensation nml, No motor deficits Skin Exam: normal color, warm, dry, No rash Lymphatic Exam: No adenopathy SpO2: 100 - Course Nursing assessment & vital signs reviewed: Yes Ordered Tests: Medication Summary Discontinued Medications Generic Name Dose Route Start Last Admin Trade Name Eduardo PRN Reason Stop Dose Admin Guaifenesin/Codeine Phosphate 10 ml 10/27/23 23:27 10/27/23 23:36 Guaifenesin/Codeine Phosphate 5 Ml Udcup PO 10/27/23 23:28 10 ml STAT ONE Administration Guaifenesin/Codeine Phosphate Confirm 10/27/23 23:35 Guaifenesin/Codeine Phosphate 5 Ml Udcup Administered 10/27/23 23:36 Dose 10 ml .ROUTE .STK-MED ONE - Progress Progress: unchanged Air Movement: good Blood Culture(s) Obtained: No Antibiotics given: No Counseled pt/family regarding: diagnosis, need for follow-up Medical Desision Making - Independent Historian Additional History obtained from: Spouse - Diagnostic Testing Diagnostic test were ordered, analyzed, and reviewed by me: No - Departure Departure Disposition: Home Clinical Impression: Bronchitis due to COVID-19 virus Condition: Stable Critical Care Time: No Referrals: HERNÁN GEIGER [Primary Care Provider] - Follow up/PCP as directed Instructions: COVID-19 (DC), Long COVID Additional Instructions: Discharge/Care Plan MARC ZAMORA was seen on 10/27/23 in the Emergency Room. The patient was counseled regarding Diagnosis,Lab results, Imaging studies, need for follow up and when to return to the Emergency Room. Prescriptions given: Discharge Note I have spoken with the patient and/or caregivers. I have explained the patient's condition, diagnosis and treatment plan based on the information available to me at this time. I have answered the patient's and/or caregiver's questions and addressed any concerns. The patient and/or caregivers have as good understanding of the patient's diagnosis, condition and treatment plan as can be expected at this point. The vital signs have been stable. The patient's condition is stable and appropriate for discharge from the emergency department. The patient will pursue further outpatient evaluation with the primary care physician or other designated or consulting physician as outlined in the discharge instructions. The patient and/or caregivers are agreeable to this plan of care and follow-up instructions have been explained in detail. The patient and/or caregivers have received these instruction. The patient/and or caregivers are aware that any significant change in condition or worsening of symptoms should prompt an immediate return to this or the closest emergency department or call 911. MACR ZAMORA was seen on 10/27/23 n the Emergency Room. At that time you were treated for an emergent condition, during your visit Laboratory, Radiology and/or other procedures may have been ordered. It is very important that you follow-up with your Primary Care Physician HERNÁN GEIGER within the next 24-48 hours to review your Emergency Room visit and the final results of testing that was ordered. Some test results such as Urine Cultures, Blood Cultures, and other cultures if ordered will not be finalized for 24-48 hours. If you do not have a Primary Care Provider please call the medical records department at [phone] to obtain a copy of your results or you may sign into our patient portal to obtain these results by visiting us @ [email or web address] and completing the following steps: 1. Click on the Patient Portal link 2. Click the Patient Self Enrollment Link to complete the enrollment form and entering your 3. Once the enrollment form is completed you will receive an email with a temporary ID and password at the email address you provided. 4. Next choose a user name and password. Your user name must be at least 4 characters long and your password must be at least 4 characters long. 5. Choose a security question from the list and provide your answer to the question. If you already have signed into the Health Portal you may access your Health Care Information 28/05 by the following steps: 1. Login to our website @ [email or web address] 2. Enter your original user name and password. FAQS The [facility] Health Portal is an online tool that contains your Lab Results, Radiology Reports, Visit History, Discharge Instructions and Health Summary Lab and Radiology Results will not be available for 72 hours on the portal. The Portal is a secure site, passwords are encryted and URLs are re-written so they cannot be copied and pasted. You and authorized family members are the only ones who can access your Portal. Also there is a timeout feature that protects your information if you leave the Portal page open. If you have technical difficulty please use the Contact Us link on the page this will allow you to submit any questions you have regarding the Portal or you may contact the Medical Record Department at [phone] ext [phone]. Prescriptions: Fluticasone/Salmeterol 115/21 [Advair Hfa 115/21 Common canister*] 1 puff IH BID #60 inhaler Benzonatate 150 mg PO TID #20 cap
[2023-10-27] MEDS ORDERED: Robitussin AC Syrup Unit Dose Cup ONE (23:35)
[2023-10-28] VITALS: BP 117/60; PULSE 56; RESP 20
== END 2023-10-27 23:58 | disposition home or self-care (01) ==
LOC: ED 22:40
DX: U07.1 COVID-19 (principal); J40 Bronchitis, not specified as acute or chronic; R05.1 Acute cough; R06.02 Shortness of breath; Z79.899 Other long term (current) drug therapy
CPT/HCPCS: 99282; A9270-GY